=== PATIENT | female | born 1965 | race Caucasian/White ===

== ENCOUNTER 2016-11-17 20:24 | Emergency (ER) | payer OTHER ==
[~2016-11-17] VITALS: Ht 162.6 cm; Wt 95.8 kg
[2016-11-17 20:33] VITALS: BP 121/92
--- NOTE | 2016-11-17 20:37 | NUR ---
PT REENA BLS. TAKEN TO BED 7
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
--- NOTE | 2016-11-17 20:47 | NUR ---
Dr. Smith evaluating patient at bedside.
[2016-11-17] MEDS ORDERED: LIDOCAINE VISCOUS 2% 20 ML UDC PO ONE (20:50)
--- NOTE | 2016-11-17 21:04 | NUR ---
PT RETURN FROM XRAY
[2016-11-17 21:42] VITALS: BP 155/94
--- NOTE | 2016-11-17 21:42 | NUR ---
Patient discharged with v/s stable. Written and verbal after care instructions given and explained. Patient alert, oriented and verbalized understanding of instructions. Ambulatory with steady gait. All questions addressed prior to discharge. ID band removed. Patient advised to follow up with PMD TOMORROW FOR BP RECHECK OR RETURN TO ER IF CONDITION WORSENS. Rx of NAPROSYN given. Patient educated on indication of medication including possible reaction and side effects. Opportunity to ask questions provided and answered.
== END 2016-11-17 21:42 | disposition home or self-care (01) ==
LOC: MED 20:24
DX: T17.228A Food in pharynx causing other injury, initial encounter (principal); S10.11XA Abrasion of throat, initial encounter; F45.8 Other somatoform disorders; I10 Essential (primary) hypertension; Z88.0 Allergy status to penicillin; X58.XXXA Exposure to other specified factors, initial encounter; Y93.89 Activity, other specified; Y92.89 Other specified places as the place of occurrence of the external cause; Y99.8 Other external cause status